=== PATIENT | male | born 1945 | race Caucasian/White ===

== ENCOUNTER 2018-03-24 19:07 | Emergency (ER) | payer OTHER ==
[~2018-03-24] VITALS: Ht 170.2 cm; Wt 66.7 kg
[2018-03-24] MEDS ORDERED: BACLOFEN10 MG (19:26)
[2018-03-24] MEDS ORDERED: ZANTAC150 M3 (19:26)
[2018-03-24] MEDS ORDERED: ASPIR 8181 MG (19:26)
[2018-03-24] MEDS ORDERED: NORVASC5 MG (19:27)
[2018-03-24] MEDS ORDERED: CLONAZEPAM0.5 MG (19:27)
[2018-03-24] MEDS ORDERED: NEURONTIN300 MG (19:27)
[2018-03-24] MEDS ORDERED: COLACE100 MG (19:27)
== END 2018-03-24 20:15 | disposition home or self-care (01) ==
LOC: ER 19:07
DX: M79.662 Pain in left lower leg (principal); M79.661 Pain in right lower leg; I83.93 Asymptomatic varicose veins of bilateral lower extremities

== ENCOUNTER 2018-03-27 09:08 | Emergency (ER) | payer OTHER ==
[~2018-03-27] VITALS: Ht 170.2 cm; Wt 63.5 kg
[~2018-03-27 09:08] MED LIST: ASPIR 8181 MG; BACLOFEN10 MG; CLONAZEPAM0.5 MG; COLACE100 MG; NEURONTIN300 MG; NORVASC5 MG; ZANTAC150 M3
== END 2018-03-27 12:26 | disposition home or self-care (01) ==
LOC: ER 09:08
DX: M62.81 Muscle weakness (generalized) (principal); M51.37 Other intervertebral disc degeneration, lumbosacral region

== ENCOUNTER 2019-06-19 08:17 | Emergency (ER) | payer OTHER ==
[~2019-06-19] VITALS: Ht 170.2 cm; Wt 60.3 kg
== END 2019-06-19 13:04 | disposition home or self-care (01) ==
LOC: ER 08:17
DX: R22.31 Localized swelling, mass and lump, right upper limb (principal)

== ENCOUNTER 2019-06-27 00:44 | Emergency (ER) | payer OTHER ==
[~2019-06-27] VITALS: Ht 172.7 cm; Wt 57.2 kg
[2019-06-27] MEDS ORDERED: IRON325 MG PO (00:55)
[2019-06-27] MEDS ORDERED: FOLIC ACID20 MG (00:56)
[2019-06-27] MEDS ORDERED: ZESTRIL2.5 MG (00:58)
[2019-06-27] MEDS ORDERED: ULTRAM50 MG (00:59)
[2019-06-27] MEDS ORDERED: LEVAQUIN500 MG (00:59)
== END 2019-06-27 15:18 | disposition home or self-care (01) ==
LOC: ER 00:44 → CPU-OBS 00:52 → ER 00:52
DX: I16.0 Hypertensive urgency (principal); I10 Essential (primary) hypertension

== ENCOUNTER 2019-07-04 10:07 | Outpatient (CLI) | payer OTHER ==
[~2019-07-04 10:07] MED LIST changes: +FOLIC ACID20 MG; +IRON325 MG PO; +LEVAQUIN500 MG; +ULTRAM50 MG; +ZESTRIL2.5 MG
== END 2019-07-05 10:38 | disposition home or self-care (01) ==
LOC: SONOGRAMA 10:07
DX: L03.113 Cellulitis of right upper limb (principal)

== ENCOUNTER 2020-01-14 07:55 | Emergency (ER) | payer OTHER ==
[~2020-01-14] VITALS: Ht 170.2 cm; Wt 55.3 kg
[2020-01-14] MEDS ORDERED: CHILDREN'S ASPI81 MG PO (08:12)
== END 2020-01-14 11:13 | disposition home or self-care (01) ==
LOC: ER 07:55
DX: K29.60 Other gastritis without bleeding (principal); R10.13 Epigastric pain

== ENCOUNTER 2020-01-21 07:37 | Emergency (ER) | payer OTHER ==
[~2020-01-21] VITALS: Ht 170.2 cm; Wt 55.3 kg
[~2020-01-21 07:37] MED LIST changes: +CHILDREN'S ASPI81 MG PO
[2020-01-21] MEDS ORDERED: TOPROL XL25 M1 (08:00)
[2020-01-21] MEDS ORDERED: ZESTRIL5 MG (08:01)
== END 2020-01-21 09:11 | disposition home or self-care (01) ==
LOC: ER 07:37
DX: R06.02 Shortness of breath (principal); R00.2 Palpitations; F41.8 Other specified anxiety disorders

== ENCOUNTER 2020-04-30 07:18 | Emergency (ER) | payer OTHER ==
[~2020-04-30] VITALS: Ht 170.2 cm; Wt 55.3 kg
[~2020-04-30 07:18] MED LIST changes: -LEVSIN/SL0.125 MG SL; -PEPCID40 MG PO
[2020-04-30] MEDS ORDERED: PEPCID40 MG PO (08:24)
[2020-04-30] MEDS ORDERED: LEVSIN/SL0.125 MG SL (08:24)
== END 2020-04-30 08:30 | disposition home or self-care (01) ==
LOC: ER 07:18
DX: K21.9 Gastro-esophageal reflux disease without esophagitis (principal); F06.4 Anxiety disorder due to known physiological condition

== ENCOUNTER → 2020-04-30 | Emergency (ER) | payer OTHER ==
[~2020-04-30] VITALS: Ht 170.2 cm; Wt 55.3 kg
[~2020-04-30] MED LIST changes: +LEVSIN/SL0.125 MG SL; +PEPCID40 MG PO; +TOPROL XL25 M1; +ZESTRIL5 MG
== END | disposition left against medical advice (07) ==
LOC: ER 04:40
DX: Z53.21 Procedure and treatment not carried out due to patient leaving prior to being seen by health care provider (principal)

== ENCOUNTER 2020-07-06 09:38 | Outpatient (CLI) | payer OTHER ==
[~2020-07-06 09:38] MED LIST changes: +LEVSIN/SL0.125 MG SL; +PEPCID40 MG PO
== END 2020-07-06 09:49 | disposition home or self-care (01) ==
LOC: RAD 09:38
PROVIDERS: ATTEND Specialist
DX: J45.998 Other asthma (principal)

== ENCOUNTER 2020-09-13 00:41 | Emergency (ER) | payer OTHER ==
[~2020-09-13] VITALS: Ht 172.7 cm; Wt 57.2 kg
[2020-09-13] MEDS ORDERED: ZOLOFT25 MG (01:01)
[2020-09-13] MEDS ORDERED: ATIVAN0.5 M1 (01:02)
== END 2020-09-13 01:54 | disposition home or self-care (01) ==
LOC: ER 00:41
DX: R53.81 Other malaise (principal); F41.1 Generalized anxiety disorder; Z76.0 Encounter for issue of repeat prescription

== ENCOUNTER 2020-12-22 09:04 | Outpatient (CLI) | payer OTHER ==
[~2020-12-22 09:04] MED LIST changes: +ATIVAN0.5 M1; +ZOLOFT25 MG
== END 2020-12-22 15:10 | disposition home or self-care (01) ==
LOC: EDBD 09:04 → LAB 09:04
PROVIDERS: ATTEND Specialist
DX: Z12.11 Encounter for screening for malignant neoplasm of colon (principal); E11.65 Type 2 diabetes mellitus with hyperglycemia; E21.0 Primary hyperparathyroidism; D64.89 Other specified anemias; E78.2 Mixed hyperlipidemia; N40.1 Benign prostatic hyperplasia with lower urinary tract symptoms

== ENCOUNTER 2020-12-22 10:01 | Outpatient (CLI) | payer OTHER | END 2020-12-22 10:11 | disposition home or self-care (01) | LOC: RAD 10:01 → EDBD 10:01 → RAD 10:11 | PROVIDERS: ATTEND Specialist | DX: J45.998 Other asthma (principal) ==

== ENCOUNTER → 2020-12-23 08:22 | Outpatient (CLI) | payer OTHER | END | disposition home or self-care (01) | LOC: LAB 08:22 → EDBD 08:22 | PROVIDERS: ATTEND Specialist | DX: Z12.11 Encounter for screening for malignant neoplasm of colon (principal); E11.65 Type 2 diabetes mellitus with hyperglycemia; E21.0 Primary hyperparathyroidism; D64.89 Other specified anemias; E78.2 Mixed hyperlipidemia; N40.1 Benign prostatic hyperplasia with lower urinary tract symptoms ==

== ENCOUNTER 2021-01-09 08:49 | Emergency (ER) | payer OTHER ==
[~2021-01-09] VITALS: Ht 172.7 cm; Wt 56.2 kg
== END 2021-01-09 12:26 | disposition home or self-care (01) ==
LOC: ER 08:49
DX: S60.211A Contusion of right wrist, initial encounter (principal); M79.631 Pain in right forearm; W01.198A Fall on same level from slipping, tripping and stumbling with subsequent striking against other object, initial encounter; Y93.01 Activity, walking, marching and hiking; Y92.480 Sidewalk as the place of occurrence of the external cause; Y99.8 Other external cause status

== ENCOUNTER → 2021-02-19 07:45 | Outpatient (CLI) | payer OTHER | END | disposition home or self-care (01) | LOC: LAB 07:45 → RAD 07:45 → EDBD 07:45 | PROVIDERS: ATTEND Specialist | DX: S52.531A Colles' fracture of right radius, initial encounter for closed fracture (principal); D64.89 Other specified anemias; D68.8 Other specified coagulation defects; D51.0 Vitamin B12 deficiency anemia due to intrinsic factor deficiency; N39.0 Urinary tract infection, site not specified ==

== ENCOUNTER 2021-02-24 08:32 | Outpatient (CLI) | payer OTHER | END 2021-02-24 08:34 | disposition home or self-care (01) | LOC: RAD 08:32 → EDBD 08:32 → RAD 08:34 | PROVIDERS: ATTEND Orthopaedic Surgery | DX: S52.531D Colles' fracture of right radius, subsequent encounter for closed fracture with routine healing (principal); M54.2 Cervicalgia ==

== ENCOUNTER 2021-04-06 07:43 | Outpatient (CLI) | payer OTHER | END 2021-04-06 07:53 | disposition home or self-care (01) | LOC: RAD 07:43 → EDBD 07:43 → RAD 07:53 | PROVIDERS: ATTEND Physical Medicine & Rehabilitation | DX: M25.511 Pain in right shoulder (principal); M77.8 Other enthesopathies, not elsewhere classified ==

== ENCOUNTER → 2021-07-13 08:07 | Outpatient (CLI) | payer OTHER | END | disposition home or self-care (01) | LOC: LAB 08:07 | PROVIDERS: ATTEND Specialist | DX: E11.21 Type 2 diabetes mellitus with diabetic nephropathy (principal); E61.1 Iron deficiency; E11.65 Type 2 diabetes mellitus with hyperglycemia ==

== ENCOUNTER 2021-09-27 09:12 | Outpatient (CLI) | payer OTHER | END 2021-09-27 09:13 | disposition home or self-care (01) | LOC: LAB 09:12 | PROVIDERS: ATTEND Internal Medicine Cardiovascular Disease | DX: E11.9 Type 2 diabetes mellitus without complications (principal); I11.9 Hypertensive heart disease without heart failure ==

== ENCOUNTER 2021-10-14 08:06 | Outpatient (CLI) | payer OTHER | END 2021-10-14 08:07 | disposition home or self-care (01) | LOC: LAB 08:06 | PROVIDERS: ATTEND Specialist | DX: E03.9 Hypothyroidism, unspecified (principal); E11.21 Type 2 diabetes mellitus with diabetic nephropathy; N39.9 Disorder of urinary system, unspecified; N40.1 Benign prostatic hyperplasia with lower urinary tract symptoms; D40.0 Neoplasm of uncertain behavior of prostate; E78.2 Mixed hyperlipidemia; E11.65 Type 2 diabetes mellitus with hyperglycemia; Z12.11 Encounter for screening for malignant neoplasm of colon; D64.9 Anemia, unspecified; J45.998 Other asthma ==

== ENCOUNTER → 2022-01-05 07:55 | Outpatient (CLI) | payer OTHER | END | disposition home or self-care (01) | LOC: LAB 07:55 | PROVIDERS: ATTEND Specialist | DX: E78.2 Mixed hyperlipidemia (principal); D64.9 Anemia, unspecified ==

== ENCOUNTER → 2022-10-04 | Outpatient (CLI) | payer OTHER | END | disposition home or self-care (01) | LOC: RAD 09:53 | PROVIDERS: ATTEND Specialist | DX: I70.0 Atherosclerosis of aorta (principal) ==

== ENCOUNTER → 2022-10-21 08:48 | Outpatient (CLI) | payer OTHER | END | disposition home or self-care (01) | LOC: LAB 08:48 | PROVIDERS: ATTEND Specialist | DX: E11.69 Type 2 diabetes mellitus with other specified complication (principal); E03.8 Other specified hypothyroidism; E11.21 Type 2 diabetes mellitus with diabetic nephropathy; Z13.220 Encounter for screening for lipoid disorders; N39.9 Disorder of urinary system, unspecified; Z12.5 Encounter for screening for malignant neoplasm of prostate; R19.5 Other fecal abnormalities; D64.89 Other specified anemias; D50.8 Other iron deficiency anemias; D50.1 Sideropenic dysphagia ==

== ENCOUNTER 2022-10-26 10:28 | Outpatient (CLI) | payer OTHER | END 2022-10-26 13:40 | disposition home or self-care (01) | LOC: LAB 10:28 | PROVIDERS: ATTEND Specialist | DX: E11.69 Type 2 diabetes mellitus with other specified complication (principal); E03.8 Other specified hypothyroidism; E11.21 Type 2 diabetes mellitus with diabetic nephropathy; Z13.220 Encounter for screening for lipoid disorders; N39.9 Disorder of urinary system, unspecified; D64.89 Other specified anemias ==

== ENCOUNTER 2023-01-03 09:02 | Outpatient (CLI) | payer OTHER | END 2023-01-03 09:05 | disposition home or self-care (01) | LOC: LAB 09:02 | PROVIDERS: ATTEND Specialist | DX: E11.65 Type 2 diabetes mellitus with hyperglycemia (principal); N39.0 Urinary tract infection, site not specified; D64.9 Anemia, unspecified ==

== ENCOUNTER 2023-04-07 07:24 | Outpatient (CLI) | payer OTHER | END 2023-04-07 07:25 | disposition home or self-care (01) | LOC: LAB 07:24 | PROVIDERS: ATTEND Specialist | DX: N39.9 Disorder of urinary system, unspecified (principal); Z12.5 Encounter for screening for malignant neoplasm of prostate; E11.69 Type 2 diabetes mellitus with other specified complication; E03.8 Other specified hypothyroidism; D64.89 Other specified anemias; Z13.220 Encounter for screening for lipoid disorders; N25.81 Secondary hyperparathyroidism of renal origin; D51.0 Vitamin B12 deficiency anemia due to intrinsic factor deficiency; D64.9 Anemia, unspecified ==

== ENCOUNTER → 2023-04-17 08:18 | Outpatient (CLI) | payer OTHER | END | disposition home or self-care (01) | LOC: LAB 08:18 | PROVIDERS: ATTEND Specialist | DX: E03.8 Other specified hypothyroidism (principal); N39.9 Disorder of urinary system, unspecified; D68.8 Other specified coagulation defects; R07.89 Other chest pain; R19.5 Other fecal abnormalities; E11.21 Type 2 diabetes mellitus with diabetic nephropathy; J45.998 Other asthma; Z13.220 Encounter for screening for lipoid disorders; D64.89 Other specified anemias ==

== ENCOUNTER 2023-04-26 09:21 | Outpatient (CLI) | payer OTHER | END 2023-04-26 09:22 | disposition home or self-care (01) | LOC: LAB 09:21 | PROVIDERS: ATTEND Specialist | DX: R19.5 Other fecal abnormalities (principal); Z12.11 Encounter for screening for malignant neoplasm of colon ==

== ENCOUNTER 2023-10-06 09:05 | Outpatient (CLI) | payer OTHER ==
[2023-10-06 10:20] LABS: HEMATOCRIT 36.4 % (39.0-48.0); HEMOGLOBIN 12.8 g/dL (13-16.00); MEAN CELL VOLUME 74.2 fL (80.0-100.00); MEAN CORPUSCULAR HGB CONC 35.1 g/dl (32.0-36.0); PLATELET COUNT 196 K/uL (150-450); RED CELL DISTRIBUTION WIDTH 19.3 % (11.5-14.5)
[2023-10-06 10:47] LABS: PH,URINE 7.5 (5.0-8.0); URINE APPEARANCE Clear; URINE BILIRRUBIN Negative (NEGATIVE); URINE BLOOD Negative; URINE COLOR Yellow; URINE GLUCOSE Negative (NEGATIVE); URINE LEUKOCYTE Negative; URINE NITRATE Negative; URINE PROTEIN Negative (NEGATIVE); URINE UROBILINOGEN 0.2 E.U./dl
[2023-10-06 10:52] LABS: URINE BACTERIA 0 uL (0.0-1933); URINE EPITHELIAL CELLS 0.1 uL (0.0-38.8); URINE RBC 0.8 uL (0.0-20.8); URINE WBC 0.3 uL (0.0-23.2)
[2023-10-06 11:04] LABS: ALBUMIN 4.5 gm/dL (3.4-5.0); ALKALINE PHOSPHATASE 81 U/L (50-136); ALT/SGPT 17 U/L (12-78); ANION GAP 7 (10.0-20.0); AST/SGOT 23 U/L (15-37); BILIRUBIN TOTAL 1.23 mg/dL (0.3-1.2); BLOOD UREA NITROGEN 15 mg/dL (7-18); BUN CREA RATIO 16 (7.0-25.0); CALCIUM 9.7 mg/dL (8.5-10.1); CARBON DIOXIDE 34 mEq/L (21-32); CHLORIDE 106 mmol/L (98-107); CHOLESTEROL 195 mg/dL (0-200); CREATININE SERUM 0.93 mg/dL (0.70-1.30); GFR 78.78; GLOBULINA 3.8 G/DL (2.4-3.5); GLUCOSE FASTING 91 mg/dL (65-100); HDL 66 mg/dl (40-60); LDL 115 mg/dl (0-130); OSMOLALITY SERUM 284 MOSM/KG (275-295); POTASSIUM 4.71 mEq/L (3.5-5.1); SODIUM 142 mmol/L (136-145); T4 FREE 0.96 NG/ML (0.76-1.46); TOTAL PROTEIN 8.3 gm/dL (6.4-8.2); TRIGLYCERIDES 68 mg/dL (0-150); VLDL 13 (0-39)
[2023-10-06 11:09] LABS: C-REACTIVE PROTEIN < 0.29 MG/DL (0.00-0.29)
== END 2023-10-06 09:20 | disposition home or self-care (01) ==
LOC: LAB 09:05 → RAD 09:05 → LAB 09:20
PROVIDERS: ATTEND Specialist
DX: E11.69 Type 2 diabetes mellitus with other specified complication (principal); Z13.220 Encounter for screening for lipoid disorders; E03.8 Other specified hypothyroidism; Z12.5 Encounter for screening for malignant neoplasm of prostate; R19.5 Other fecal abnormalities; N39.9 Disorder of urinary system, unspecified; D64.89 Other specified anemias

== ENCOUNTER 2023-12-02 02:27 | Emergency (ER) | payer OTHER ==
[~2023-12-02] VITALS: Ht 167.6 cm; Wt 56.2 kg
[2023-12-02] MEDS ORDERED: ATIVAN0.5 M1 PO (02:43)
[2023-12-02] MEDS ORDERED: ZESTRIL10 M1 PO (02:44)
[2023-12-02] MEDS ORDERED: FERROUS GLUCON324 M1 PO (02:45)
[2023-12-02] MEDS ORDERED: CENTRUM ADULTS1 EAC1 PO (02:46)
== END 2023-12-02 06:27 | disposition home or self-care (01) ==
LOC: ER 02:27
DX: K59.01 Slow transit constipation (principal)

== ENCOUNTER 2023-12-12 13:21 | Emergency (ER) | payer OTHER ==
[~2023-12-12] VITALS: Ht 167.6 cm; Wt 56.2 kg
[~2023-12-12 13:21] MED LIST changes: +ATIVAN0.5 M1 PO; +CENTRUM ADULTS1 EAC1 PO; +FERROUS GLUCON324 M1 PO; +ZESTRIL10 M1 PO
[2023-12-12] MEDS ORDERED: CETIRIZINE HCL 5 MG/5 ML ML PO ONE (16:00)
[2023-12-12] MEDS ORDERED: hydrOXYzine PAMOATE 25 MG CAPSULE PO ONE (16:00)
[2023-12-12] MEDS ORDERED: FLONASE16 GM NASAL (17:50)
== END 2023-12-12 17:58 | disposition home or self-care (01) ==
LOC: ER 13:21
DX: R53.81 Other malaise (principal); J30.9 Allergic rhinitis, unspecified; I10 Essential (primary) hypertension

== ENCOUNTER 2024-04-05 08:12 | Outpatient (CLI) | payer OTHER ==
[~2024-04-05 08:12] MED LIST changes: +FLONASE16 GM NASAL
[2024-04-05 09:21] LABS: HEMOGLOBIN 11.7 g/dL (13-16.00); MEAN CELL VOLUME 75.2 fL (80.0-100.00); MEAN CORPUSCULAR HEMOGLOBIN 27.4 pg (27.00-32.0); MEAN CORPUSCULAR HGB CONC 36.5 g/dl (32.0-36.0); PLATELET COUNT 199 K/uL (150-450); RED BLOOD COUNT 4.26 M/uL (4.00-6.00); RED CELL DISTRIBUTION WIDTH 19.1 % (11.5-14.5)
[2024-04-05 09:37] LABS: CREATININE URINE RANDOM 54.7 MG/DL (30-125)
[2024-04-05 09:50] LABS: INR 1.06; PARTIAL THROMBOPLASTIN TIME 30.3 SECONDS (22.0-34.0); PROTHROMBIN TIME 11.1 SECONDS (9.0-11.5)
[2024-04-05 10:23] LABS: ALBUMIN 4.3 gm/dL (3.4-5.0); BILIRUBIN TOTAL 1.45 mg/dL (0.3-1.2); BILIRUBIN,CONJUGATED 0.34 mg/dL (0.0-0.2); BILIRUBIN,UNCONJUGATED 1.11 mg/dL (0.0-0.6); CALCIUM 9.2 mg/dL (8.5-10.1); CHOL HDL RATIO 2.6 (0-5.0); CREATININE SERUM 0.8 mg/dL (0.70-1.30); FREE TRIODOTIRONINE 2.27 pg/ml (2.18-3.98); GFR 93.49; POTASSIUM 4.39 mEq/L (3.5-5.1); PROSTATIC SPECIFIC ANTIGEN 3.17 NG/ML (0.010-4.00); T4 FREE 0.97 NG/ML (0.76-1.46); TOTAL PROTEIN 7.8 gm/dL (6.4-8.2); TSH 1.36 uIU/mL (0.358-3.74)
== END 2024-04-05 23:00 | disposition home or self-care (01) ==
LOC: LAB 08:12
PROVIDERS: ATTEND Specialist
DX: E03.9 Hypothyroidism, unspecified (principal); N40.1 Benign prostatic hyperplasia with lower urinary tract symptoms; E78.2 Mixed hyperlipidemia; D64.9 Anemia, unspecified; D68.8 Other specified coagulation defects; K75.81 Nonalcoholic steatohepatitis (NASH); D64.1 Secondary sideroblastic anemia due to disease; E11.21 Type 2 diabetes mellitus with diabetic nephropathy

== ENCOUNTER → 2024-07-08 08:04 | Outpatient (CLI) | payer OTHER ==
[2024-07-08 09:02] LABS: HEMATOCRIT 33.4 % (39.0-48.0); HEMOGLOBIN 11.8 g/dL (13-16.00); MEAN CELL VOLUME 75.2 fL (80.0-100.00); MEAN CORPUSCULAR HEMOGLOBIN 26.6 pg (27.00-32.0); MEAN CORPUSCULAR HGB CONC 35.3 g/dl (32.0-36.0); PLATELET COUNT 188 K/uL (150-450); RED BLOOD COUNT 4.44 M/uL (4.00-6.00); RED CELL DISTRIBUTION WIDTH 19.5 % (11.5-14.5)
[2024-07-08 09:19] LABS: URINE APPEARANCE Clear; URINE BILIRRUBIN Negative (NEGATIVE); URINE BLOOD Negative; URINE COLOR Yellow; URINE GLUCOSE Negative (NEGATIVE); URINE KETONE Negative (NEGATIVE); URINE LEUKOCYTE Negative; URINE NITRATE Negative; URINE PROTEIN Negative (NEGATIVE); URINE UROBILINOGEN 0.2 E.U./dl
[2024-07-08 09:26] LABS: URINE BACTERIA 6.2 uL (0.0-1933)
[2024-07-08 09:37] LABS: URINE EPITHELIAL CELLS 0.1 uL (0.0-38.8); URINE RBC 0.4 uL (0.0-20.8); URINE WBC 0.1 uL (0.0-23.2)
[2024-07-08 10:30] LABS: ALBUMIN 4.2 gm/dL (3.4-5.0); BILIRUBIN TOTAL 1.32 mg/dL (0.3-1.2); CALCIUM 9.3 mg/dL (8.5-10.1); CHOL HDL RATIO 2.8 (0-5.0); CREATININE SERUM 0.92 mg/dL (0.70-1.30); FREE TRIODOTIRONINE 2.15 pg/ml (2.18-3.98); GFR 79.57; GLOBULINA 3.2 G/DL (2.4-3.5); POTASSIUM 4.69 mEq/L (3.5-5.1); PROSTATIC SPECIFIC ANTIGEN 3.18 NG/ML (0.010-4.00); T4 FREE 0.91 NG/ML (0.76-1.46); TOTAL PROTEIN 7.4 gm/dL (6.4-8.2); TSH 1.19 uIU/mL (0.358-3.74)
[2024-07-09 10:43] LABS: ob NEGATIVE (NEGATIVE)
== END | disposition home or self-care (01) ==
LOC: LAB 08:04
PROVIDERS: ATTEND Specialist
DX: E03.8 Other specified hypothyroidism (principal); K92.2 Gastrointestinal hemorrhage, unspecified; Z12.11 Encounter for screening for malignant neoplasm of colon; N39.9 Disorder of urinary system, unspecified; D64.89 Other specified anemias; N25.89 Other disorders resulting from impaired renal tubular function; E11.69 Type 2 diabetes mellitus with other specified complication; N40.1 Benign prostatic hyperplasia with lower urinary tract symptoms; D40.0 Neoplasm of uncertain behavior of prostate; Z13.220 Encounter for screening for lipoid disorders

== ENCOUNTER → 2024-10-11 08:37 | Outpatient (CLI) | payer OTHER ==
[2024-10-11 10:04] LABS: HEMATOCRIT 33.8 % (39.0-48.0); MEAN CELL VOLUME 75.5 fL (80.0-100.00); MEAN CORPUSCULAR HEMOGLOBIN 26.9 pg (27.00-32.0); MEAN CORPUSCULAR HGB CONC 35.6 g/dl (32.0-36.0); PLATELET COUNT 186 K/uL (150-450); RED BLOOD COUNT 4.48 M/uL (4.00-6.00); RED CELL DISTRIBUTION WIDTH 19.1 % (11.5-14.5)
[2024-10-11 10:20] LABS: % SATURACION 36.2 % (20-50); ALBUMIN 4.1 gm/dL (3.4-5.0); BILIRUBIN TOTAL 1.3 mg/dL (0.3-1.2); CALCIUM 9.2 mg/dL (8.5-10.1); CREATININE SERUM 0.95 mg/dL (0.70-1.30); FERRITIN 194.7 NG/ML (26-388); GFR 76.67; GLOBULINA 3.5 G/DL (2.4-3.5); POTASSIUM 4.4 mEq/L (3.5-5.1); TOTAL PROTEIN 7.6 gm/dL (6.4-8.2)
[2024-10-11 11:23] LABS: PLATELET ESTIMATE NORMAL (NORMAL)
[2024-10-14 17:02] LABS: hgb a 97.7 % (96.4-98.8); hgb a2 2.3 % (1.8-3.2); hgb f 0 % (0.0-2.0); hgb s 0 % (0.0)
== END | disposition home or self-care (01) ==
LOC: LAB 08:37
PROVIDERS: ATTEND Specialist
DX: D63.0 Anemia in neoplastic disease (principal); D55.0 Anemia due to glucose-6-phosphate dehydrogenase [G6PD] deficiency

== ENCOUNTER → 2025-01-10 08:08 | Outpatient (CLI) | payer OTHER ==
[2025-01-10 09:33] LABS: URINE APPEARANCE Clear; URINE BILIRRUBIN Negative (NEGATIVE); URINE BLOOD Negative; URINE COLOR Dark Yellow; URINE GLUCOSE Negative (NEGATIVE); URINE KETONE Negative (NEGATIVE); URINE LEUKOCYTE Negative; URINE NITRATE Negative; URINE PROTEIN Negative (NEGATIVE)
[2025-01-10 09:37] LABS: URINE RBC 3.5 uL (0.0-20.8)
[2025-01-10 09:52] LABS: INR 1.06; PARTIAL THROMBOPLASTIN TIME 29.6 SECONDS (22.0-34.0); PROTHROMBIN TIME 11.5 SECONDS (9.0-11.5)
[2025-01-10 09:54] LABS: HEMATOCRIT 34.6 % (39.0-48.0); HEMOGLOBIN 12.3 g/dL (13-16.00); MEAN CELL VOLUME 73.9 fL (80.0-100.00); MEAN CORPUSCULAR HEMOGLOBIN 26.3 pg (27.00-32.0); MEAN CORPUSCULAR HGB CONC 35.6 g/dl (32.0-36.0); PLATELET COUNT 196 K/uL (150-450); RED BLOOD COUNT 4.68 M/uL (4.00-6.00); RED CELL DISTRIBUTION WIDTH 19.2 % (11.5-14.5)
[2025-01-10 10:02] LABS: URINE BACTERIA 0 uL (0.0-1933); URINE CAST 0.14 uL (0.0-1.40); URINE EPITHELIAL CELLS 0.7 uL (0.0-38.8); URINE WBC 1.2 uL (0.0-23.2)
[2025-01-10 11:00] LABS: ALBUMIN 4.3 gm/dL (3.4-5.0); BILIRUBIN TOTAL 1.53 mg/dL (0.3-1.2); CALCIUM 9.3 mg/dL (8.5-10.1); CHOL HDL RATIO 3.1 (0-5.0); CREATININE SERUM 1.02 mg/dL (0.70-1.30); GFR 70.63; GLOBULINA 3.7 G/DL (2.4-3.5); POTASSIUM 4.55 mEq/L (3.5-5.1)
[2025-01-10 11:34] LABS: ob NEGATIVE (NEGATIVE)
[2025-01-12 11:03] LABS: PLATELET ESTIMATE NORMAL (NORMAL)
== END | disposition home or self-care (01) ==
LOC: LAB 08:08
PROVIDERS: ATTEND Specialist
DX: D64.9 Anemia, unspecified (principal); E11.21 Type 2 diabetes mellitus with diabetic nephropathy; N39.9 Disorder of urinary system, unspecified; E78.2 Mixed hyperlipidemia; E11.65 Type 2 diabetes mellitus with hyperglycemia; Z12.11 Encounter for screening for malignant neoplasm of colon; D68.8 Other specified coagulation defects

== ENCOUNTER 2025-03-15 23:46 | Emergency (ER) | payer OTHER ==
[~2025-03-15] VITALS: Ht 170.2 cm; Wt 56.7 kg
== END 2025-03-16 | disposition left against medical advice (07) ==
LOC: ER 23:46
DX: Z53.21 Procedure and treatment not carried out due to patient leaving prior to being seen by health care provider (principal)

== ENCOUNTER → 2025-04-27 | Emergency (ER) | payer OTHER ==
[~2025-04-27] VITALS: Ht 170.2 cm; Wt 72.6 kg
[~2025-04-27] MED LIST changes: +0.9 % SODIUM CHLORIDE 1,000 ML IV ONE
[2025-04-28 02:43] LABS: BASO % 0.5 % (0.1-1.2); EOS # 0.16 (0.04-0.54); EOS % 1.7 % (0.7-7.0); LYMPH # 1.58 (1.18-3.74); LYMPH % 17.0 % (19.3-53.1); MEAN PLATELET VOLUME 9.10 fl (9.4-12.4); MONO # 1.47 (0.24-0.82); MONO % 15.8 % (4.7-12.5); NEUT # 6.01 (1.56-6.13); NEUT % 64.7 % (34.0-71.1); RED CELL DISTRIBUTION WIDTH 18.8 % (11.6-14.4)
[2025-04-28 02:57] LABS: INR 1.04
[2025-04-28 03:03] LABS: ALT/SGPT 25.0 U/L (12-78); AST/SGOT 28.0 U/L (15-37); BILIRUBIN TOTAL 1.68 mg/dL (0.3-1.2); BILIRUBIN,CONJUGATED 0.4 mg/dL (0.0-0.2); BUN CREA RATIO 17.0 (7.0-25.0); CREATININE SERUM 1.17 mg/dL (0.70-1.30); GFR 60.14; GLOBULINA 3.7 G/DL (2.4-3.5); GLUCOSE FASTING 100.0 mg/dL (65-100); OSMOLALITY SERUM 263.0 MOSM/KG (275-295)
[2025-04-28 03:38] LABS: ob NEGATIVE (NEGATIVE)
== END | disposition home or self-care (01) ==
LOC: ER 23:14
PROVIDERS: General Practice
DX: K59.00 Constipation, unspecified (principal); F41.8 Other specified anxiety disorders; Z87.19 Personal history of other diseases of the digestive system; K80.20 Calculus of gallbladder without cholecystitis without obstruction; N40.0 Benign prostatic hyperplasia without lower urinary tract symptoms
CPT/HCPCS: 36415; 74177; 96365; 96366; 99284; J7030; Q9965